=== PATIENT | male | born 1965 | race Caucasian/White ===

== ENCOUNTER → 2017-08-29 | Outpatient (CLI) | payer OTHER ==
[~2017-08-29] MED LIST: ALLEGRA ALLERGY60 MG PO; ASPIR 8181 MG PO; LOVASTATIN 20 M20 MG PO; PAXIL10 MG PO
== END ==
LOC: M.ULTRA 07:23
DX: N28.1 Cyst of kidney, acquired (principal); R74.0 Nonspecific elevation of levels of transaminase and lactic acid dehydrogenase [LDH]

== ENCOUNTER 2020-06-26 11:28 | Emergency (ER) | payer BC ==
[~2020-06-26] VITALS: Ht 182.9 cm; Wt 99.8 kg
[2020-06-26 12:38] LABS: ABSOLUTE BASOPHILS 0.1 thou/uL (0.0-0.2); ABSOLUTE EOSINOPHILS 0.2 thou/uL (0.0-0.7); ABSOLUTE LYMPHOCYTES 3.4 thou/uL (0.8-5.3); ABSOLUTE MONOCYTES 0.6 thou/uL (0.0-1.2); ABSOLUTE NEUTROPHILS 2.9 thou/uL (1.6-8.1); BASOPHILS 0.9 %; EOSINOPHILS 2.6 %; HEMATOCRIT 45.6 % (42.0-52.0); HEMOGLOBIN 15.2 gm/dL (14.0-18.0); LYMPHOCYTES 47.5 %; MCH 32.4 pg (26.0-34.0); MCHC 33.4 g/dL (28.0-37.0); MONOCYTES 8.3 %; MPV 7.7 fl. (7.2-11.1); NUCLEATED RBCS 0 /100WBC; PLATELET COUNT* 335 thou/uL (150-400); POLYS 40.7 %; RDW-CV 12.8 % (10.5-14.5); WBC 7.2 thou/uL (4.0-11.0)
[2020-06-26 12:47] LABS: APTT 21.8 Seconds (25.0-31.3); INR 1.1; PROTIME 11.6 Seconds (9.20-11.50)
[2020-06-26 12:52] LABS: CALCIUM 8.6 mg/dL (8.5-10.1)
[2020-06-26 12:56] LABS: ALBUMIN 4.2 g/dL (3.4-5.0); TOTAL BILIRUBIN 0.7 mg/dL (<0.1-1.0); TOTAL PROTEIN 7.9 g/dL (6.4-8.2)
[2020-06-26 13:45] VITALS: BP 170/94
--- NOTE | 2020-06-29 08:33 | EKG ---
[place] [address] ELECTROCARDIOGRAM REPORT Name: JANETTEJANETH Oconnor Room: [facility]#: [id number] Admission: 06/26/20 Attend Phys: Discharge: 06/26/20 Date of : 61 Date of Service: 06/26/20 1150 Report #: [id number] THIS REPORT FOR: //name// [facility] ED Test Date: 2020-06-26 Test Time: 11:50:42 Pat Name: JANETH SAVAGE Department: Room: Gender: Demand Inspector: [facility] : 1965 Requested By: Luis Elliott Order Number: [id number] MD: Virgilio Farrell Measurements Intervals [place] Rate: 89 P: 49 [place]: 183 QRS: -13 QRSD: 104 T: 10 QT: 389 QTc: 474 Interpretive Statements Sinus rhythm Baseline wander in lead(s) II,aVR No previous ECG available for comparison Electronically Signed On 06-29-2020 8:33:24 INVESTIGATIVE ANALYST by Virgilio Farrell [email or web address] <ELECTRONICALLY SIGNED> By: Castro Farrell MD, [facility] 06/29/20 0833 1150 115 Castro Farrell MD, [facility] /EPI
== END 2020-06-26 13:50 | disposition short-term general hospital (02) ==
LOC: M.ERS 11:28
PROVIDERS: Emergency Medicine Emergency Medical Services
DX: S06.6X0A Traumatic subarachnoid hemorrhage without loss of consciousness, initial encounter (principal); Z20.828 Contact with and (suspected) exposure to other viral communicable diseases; Z79.899 Other long term (current) drug therapy; Z79.82 Long term (current) use of aspirin; W18.39XA Other fall on same level, initial encounter; Y93.89 Activity, other specified; Y92.89 Other specified places as the place of occurrence of the external cause; Y99.8 Other external cause status

== ENCOUNTER 2021-02-23 14:30 | Emergency (ER) | payer BC ==
[~2021-02-23] VITALS: Ht 188 cm; Wt 108.9 kg
[2021-02-23] MEDS ORDERED: CELEBREX50 MG PO (14:41)
[2021-02-23] MEDS ORDERED: CRESTOR5 MG PO (14:41)
[2021-02-23 15:26] LABS: ABSOLUTE BASOPHILS 0.1 thou/uL (0.0-0.2); ABSOLUTE EOSINOPHILS 0.5 thou/uL (0.0-0.7); ABSOLUTE LYMPHOCYTES 2.8 thou/uL (0.8-5.3); ABSOLUTE MONOCYTES 0.8 thou/uL (0.0-1.2); BASOPHILS 1.4 %; EOSINOPHILS 6.4 %; HEMATOCRIT 40.7 % (42.0-52.0); HEMOGLOBIN 14.4 gm/dL (14.0-18.0); LYMPHOCYTES 38.9 %; MCH 33.6 pg (26.0-34.0); MCHC 35.4 g/dL (28.0-37.0); MCV 94.9 fL (80.0-100.0); MONOCYTES 11.4 %; MPV 7.3 fl. (7.2-11.1); NUCLEATED RBCS 0 /100WBC; PLATELET COUNT* 294 thou/uL (150-400); POLYS 41.9 %; RBC 4.29 mil/uL (4.50-6.00); WBC 7.1 thou/uL (4.0-11.0)
[2021-02-23 15:33] LABS: CALCIUM 8.7 mg/dL (8.5-10.1); CREATININE 0.8 mg/dL (0.6-1.3); POTASSIUM 3.3 mmol/L (3.5-5.1)
[2021-02-23 15:35] LABS: URINE BILIRUBIN NEGATIVE (Negative); URINE BLOOD 3+ (Negative); URINE CLARITY CLEAR; URINE COLOR YELLOW; URINE GLUCOSE-RANDOM NEGATIVE (Negative); URINE KETONES NEGATIVE (Negative); URINE LEUKOCYTES-REFLEX NEGATIVE (Negative); URINE NITRITE-REFLEX NEGATIVE (Negative); URINE PROTEIN TRACE (Negative); URINE SPECIFIC GRAVITY >= 1.030 (1.005-1.030)
[2021-02-23 15:38] LABS: TOTAL BILIRUBIN 0.4 mg/dL (<0.1-1.0); TOTAL PROTEIN 7.5 g/dL (6.4-8.2)
[2021-02-23] MEDS ORDERED: CIPROFLOXACIN500 M1 PO (16:13)
[2021-02-23] MEDS ORDERED: FLOMAX0.4 MG PO (16:13)
[2021-02-23] MEDS ORDERED: PERCOCET PO (16:13)
[2021-02-23 16:18] LABS: BACTERIA-REFLEX 1-9 Few /HPF (None Seen); CASTS None Seen /LPF (None Seen); CRYSTALS None Seen /LPF (None Seen); SQUAMOUS 0-3 Few /LPF (0-3); URINE RBC 3-10 Few /HPF (0-2); URINE WBC-REFLEX 0-5 Rare /HPF (0-5)
[2021-02-23 16:28] VITALS: BP 131/72
== END 2021-02-23 16:29 | disposition home or self-care (01) ==
LOC: M.ERS 14:30
PROVIDERS: Family Medicine
DX: N20.1 Calculus of ureter (principal); E78.5 Hyperlipidemia, unspecified; F32.9 Major depressive disorder, single episode, unspecified; Z87.81 Personal history of (healed) traumatic fracture; Z79.82 Long term (current) use of aspirin; Z79.899 Other long term (current) drug therapy

== ENCOUNTER 2021-07-18 23:01 | Inpatient (IN) | payer BC ==
[~2021-07-18] VITALS: Ht 188 cm; Wt 104.3 kg
--- NOTE | ~2021-07-18 | OP ---
[address] [address] OPERATIVE REPORT Name: JANETH SAVAGE Room: [address] IN M.R.#: [id number] Admission: 07/18/21 Attend Phys: Sandoval Dewitt Discharge: 07/19/21 Date of : 61 Report #: [id number] THIS REPORT FOR: cc: ERIC MENDEZ,ERIC Medina,Brandon Vela MD ~ DATE OF SURGERY: 07/19/2021 PREOPERATIVE DIAGNOSES: Right proximal ureteral calculi, status post lithotripsy. POSTOPERATIVE DIAGNOSES: Right proximal ureteral calculi, status post lithotripsy. PROCEDURE: Cystoscopy with right diagnostic ureteroscopy, stent. SURGEON: Brandon Medina MD ANESTHESIA: General. COMPLICATIONS: None. DRAINS: Right 6 x 28 double-J stent. FINDINGS: Proximal ureteral calculi. HISTORY: This is a 56-year-old gentleman who presents in intractable pain with right proximal ureteral calculi and hydronephrosis and flank pain. He had shockwave lithotripsy done about [address] scan reveals no renal pathology, but hydronephrosis, right proximal ureteral calculi, a total of about 3-4. I discussed the options and recommended ureteral stenting with possible laser lithotripsy. Risks, benefits, expected outcomes and alternatives explained. Informed consent given. OPERATIVE PROCEDURE: He was taken back to the operating room, given preoperative antibiotics, general anesthetic, prepped and draped in standard sterile fashion in dorsal lithotomy position on the operating table. A surgical timeout was performed. Upon inspection of the urethra with a 22-Uzbek, cystoscope was normal. Upon inspection, the bladder was normal as well. I cannulated the right ureteral orifice with an open-ended catheter, injected contrast up the ureter. The ureter was very tight. There were stones in the mid to proximal ureter about 3-4 lined up, moderate hydronephrosis in the kidney. I was able to pass my guidewire up through [place] [address] OPERATIVE REPORT Name: JANETH SAVAGE Room: [address] [place] ..#: [id number] Admission: 07/18/21 Attend Phys: Sandoval Dewitt Discharge: 07/19/21 Date of : 61 Report #: [id number] Alongside the guidewire, passed a 4.5-Uzbek semirigid ureteroscope to perform diagnostic ureteroscopy. I was able to get into about the mid ureter, but could not go any further. I placed a second guidewire and offloaded my scope. With the second guidewire, I attempted to pass an 8-Uzbek flexible ureteroscope that would not go past the UVJ. At this point, I elected to place a stent. I offloaded my ureteroscope, unloaded my cystoscope and with my guidewire, passed the open-ended catheter up the UPJ, opacified the collecting system showing no extravasation, measured the right ureteral length and passed a 6 x 28 double-J stent with a nice coil seen in the renal pelvis and bladder. The bladder was drained. Follow up for definitive outpatient ureteroscopy in the next few weeks. By: [id number] Medina MD /nt
[~2021-07-18 23:01] MED LIST changes: +CELEBREX50 MG PO; +CIPROFLOXACIN500 M1 PO; +CRESTOR5 MG PO; +FLOMAX0.4 MG PO; +PERCOCET PO
[2021-07-18 23:18] VITALS: BP 159/97
[2021-07-18 23:21] LABS: URINE BILIRUBIN NEGATIVE (Negative); URINE BLOOD 3+ (Negative); URINE CLARITY CLEAR; URINE COLOR RED; URINE GLUCOSE-RANDOM NEGATIVE (Negative); URINE KETONES 2+ (Negative); URINE LEUKOCYTES NEGATIVE (Negative); URINE NITRITE NEGATIVE (Negative); URINE PROTEIN TRACE (Negative); URINE UROBILINOGEN 0.2 E.U./dl (0.2-1.0)
[2021-07-18 23:33] LABS: ABSOLUTE EOSINOPHILS 0.1 thou/uL (0.0-0.7); ABSOLUTE LYMPHOCYTES 1.3 thou/uL (0.8-5.3); ABSOLUTE MONOCYTES 0.9 thou/uL (0.0-1.2); ABSOLUTE NEUTROPHILS 7.6 thou/uL (1.6-8.1); BASOPHILS 0.3 %; EOSINOPHILS 1.4 %; HEMATOCRIT 41.5 % (42.0-52.0); HEMOGLOBIN 14.3 gm/dL (14.0-18.0); LYMPHOCYTES 13.3 %; MCH 32.8 pg (26.0-34.0); MCHC 34.5 g/dL (28.0-37.0); MCV 95.1 fL (80.0-100.0); MONOCYTES 9.1 %; MPV 7.1 fl. (7.2-11.1); NUCLEATED RBCS 0 /100WBC; PLATELET COUNT* 318 thou/uL (150-400); POLYS 75.9 %; RBC 4.37 mil/uL (4.50-6.00); RDW-CV 12.8 % (10.5-14.5)
[2021-07-18 23:46] LABS: CALCIUM 9.1 mg/dL (8.5-10.1); CREATININE 1.3 mg/dL (0.6-1.3); POTASSIUM 3.8 mmol/L (3.5-5.1)
[2021-07-18 23:50] LABS: TOTAL BILIRUBIN 0.8 mg/dL (<0.1-1.0); TOTAL PROTEIN 7.7 g/dL (6.4-8.2)
[2021-07-19] VITALS (8 sets, daily range): BP systolic 120–162; BP diastolic 66–92
[2021-07-19 00:05] LABS: CASTS None Seen /LPF (None Seen); SQUAMOUS 0-3 Few /LPF (0-3)
[2021-07-19 00:06] LABS: BACTERIA None Seen /HPF (None Seen); CRYSTALS None Seen /LPF (None Seen); URINE RBC >20 Many /HPF (0-2); URINE WBC 0-5 Rare /HPF (0-5)
--- NOTE | 2021-07-19 09:01 | EKG ---
[place] [address] ELECTROCARDIOGRAM REPORT Name: MARCELLUSJANETH Quintana Room: [address] ADM IN M.R.#: [id number] Admission: 07/18/21 Attend Phys: Tre Soto Discharge: Date of : 61 Date of Service: 07/18/21 2315 Report #: [id number] THIS REPORT FOR: //name// [facility] ED Test Date: 2021-07-18 Test Time: 23:15:26 Pat Name: JANETH SAVAGE Department: Room: [facility] Gender: M Stone Sandblaster: [facility] : 1965 Requested By: Maycol Perea Order Number: [id number] MD: Vargas Horan Measurements Intervals [place] Rate: 93 P: 67 [place]: 174 QRS: 31 QRSD: 105 T: 27 QT: 386 QTc: 481 Interpretive Statements Sinus rhythm Inferior infarct, old Compared to ECG 06/26/2020 11:50:42 Myocardial infarct finding now present Electronically Signed On 07-19-2021 9:00:54 NEUROLOGICAL PHYSIOTHERAPIST by Vargas Horan [email or web address] <ELECTRONICALLY SIGNED> By: Vargas Horan MD, FACC 07/19/21 0900 2315 2315 Vargas Horan MD, FAC /EPI
[2021-07-19] MEDS ORDERED: FLOMAX0.4 MG PO (16:30)
[2021-07-19] MEDS ORDERED: PERCOCET 5-3251 EACH PO (16:32)
[2021-07-19] MEDS ORDERED: CIPRO500 M1 PO (16:33)
[2021-07-19] MEDS ORDERED: OXYBUTYNIN 5 MG5 M2 PO (16:39)
== END 2021-07-19 18:00 | disposition home or self-care (01) | DRG 661 ==
LOC: M.ERS 23:01 → M.3W 23:49 → M.TBA-ER 23:49 → M.3W 23:49
PROVIDERS: Physician Assistant; ADMIT Internal Medicine; ATTEND Internal Medicine
PROC: 0T768DZ Dilation of Right Ureter with Intraluminal Device, Via Natural or Artificial Opening Endoscopic (ICD-10-PCS; principal; 2021-07-19)
DX: N13.2 Hydronephrosis with renal and ureteral calculous obstruction (principal); E78.5 Hyperlipidemia, unspecified; F32.9 Major depressive disorder, single episode, unspecified; R31.9 Hematuria, unspecified; E66.3 Overweight; Z68.29 Body mass index [BMI] 29.0-29.9, adult; Z20.822 Contact with and (suspected) exposure to COVID-19

== ENCOUNTER 2021-07-21 23:34 | Emergency (ER) | payer BC ==
[~2021-07-21] VITALS: Ht 188 cm; Wt 104.3 kg
[~2021-07-21 23:34] MED LIST changes: +CIPRO500 M1 PO; +OXYBUTYNIN 5 MG5 M2 PO; +PERCOCET 5-3251 EACH PO
[2021-07-22 00:29] LABS: URINE BILIRUBIN NEGATIVE (Negative); URINE BLOOD 3+ (Negative); URINE CLARITY CLEAR; URINE COLOR YELLOW; URINE GLUCOSE-RANDOM NEGATIVE (Negative); URINE KETONES NEGATIVE (Negative); URINE LEUKOCYTES-REFLEX 1+ (Negative); URINE NITRITE-REFLEX NEGATIVE (Negative); URINE PROTEIN 2+ (Negative); URINE UROBILINOGEN 0.2 E.U./dl (0.2-1.0)
[2021-07-22 00:36] LABS: BACTERIA-REFLEX None Seen /HPF (None Seen); CASTS None Seen /LPF (None Seen); CRYSTALS None Seen /LPF (None Seen); MUCUS 0-3 Light strn/LPF (None Seen); SQUAMOUS 0-3 Few /LPF (0-3); URINE RBC >20 Many /HPF (0-2); URINE WBC-REFLEX 0-5 Rare /HPF (0-5)
[2021-07-22 00:53] LABS: ABSOLUTE BASOPHILS 0.1 thou/uL (0.0-0.2); ABSOLUTE EOSINOPHILS 0.3 thou/uL (0.0-0.7); ABSOLUTE LYMPHOCYTES 1.6 thou/uL (0.8-5.3); ABSOLUTE NEUTROPHILS 5.7 thou/uL (1.6-8.1); BASOPHILS 0.7 %; HEMATOCRIT 35.3 % (42.0-52.0); LYMPHOCYTES 18.2 %; MCH 32.8 pg (26.0-34.0); MCHC 34.1 g/dL (28.0-37.0); MCV 96.3 fL (80.0-100.0); MONOCYTES 11.8 %; MPV 6.6 fl. (7.2-11.1); NUCLEATED RBCS 0 /100WBC; PLATELET COUNT* 296 thou/uL (150-400); POLYS 65.3 %; RBC 3.66 mil/uL (4.50-6.00); RDW-CV 12.5 % (10.5-14.5); WBC 8.7 thou/uL (4.0-11.0)
[2021-07-22 01:21] LABS: CALCIUM 8.3 mg/dL (8.5-10.1); CREATININE 1.4 mg/dL (0.6-1.3); POTASSIUM 3.4 mmol/L (3.5-5.1)
[2021-07-22 01:23] LABS: ALBUMIN 3.1 g/dL (3.4-5.0); TOTAL BILIRUBIN 0.5 mg/dL (<0.1-1.0); TOTAL PROTEIN 6.3 g/dL (6.4-8.2)
[2021-07-22] MEDS ORDERED: OXYCODONE HCL 55 MG PO (04:27)
[2021-07-22 04:35] VITALS: BP 143/81
== END 2021-07-22 04:36 | disposition home or self-care (01) ==
LOC: M.ERS 23:34
PROVIDERS: Personal Emergency Response Attendant
DX: N13.2 Hydronephrosis with renal and ureteral calculous obstruction (principal); E78.5 Hyperlipidemia, unspecified; F32.9 Major depressive disorder, single episode, unspecified; Z87.442 Personal history of urinary calculi; Z79.899 Other long term (current) drug therapy; Z79.2 Long term (current) use of antibiotics